=== PATIENT | male | born 1955 | race Caucasian/White ===

== ENCOUNTER 2019-05-26 | Emergency (ER) | payer BC ==
[2019-05-26] MEDS ORDERED: CYCLOBENZAPR5 MG PO (10:50)
[2019-05-26] MEDS ORDERED: VOLTAREN1%GEL TOP (10:50)
[2019-05-26] MEDS ORDERED: PROCARDIA XL30 MG PO (11:15)
[2019-05-26] MEDS ORDERED: CRESTOR5 MG PO (11:15)
[2019-05-26] MEDS ORDERED: JARDIANCE10 MG PO (11:16)
[2019-05-26] MEDS ORDERED: ACTOS30 MG PO (11:16)
[2019-05-26] MEDS ORDERED: ENALAPRIL5 MG PO (11:16)
[2019-05-26] MEDS ORDERED: TOUJEO MAX300 UNIT/M SC (11:18)
[2019-05-26] MEDS ORDERED: BYDUREON2 MG SC (11:19)
[2019-05-26] MEDS ORDERED: HUMALOG KW100 UNIT/M (11:20)
== END 2019-05-26 11:45 | disposition home or self-care (01) | DRG 556 ==
DX: M25.511 Pain in right shoulder (principal); E11.9 Type 2 diabetes mellitus without complications; I10 Essential (primary) hypertension

== ENCOUNTER 2023-05-10 02:20 | Emergency (ER) | payer MEDICARE ==
[~2023-05-10] VITALS: Ht 170.2 cm; Wt 104.0 kg
[2023-05-10] VITALS (17 sets, daily range): BP systolic 122–153; BP diastolic 56–75
[~2023-05-10 02:20] MED LIST: ACTOS30 MG PO; BYDUREON2 MG SC; CRESTOR5 MG PO; CYCLOBENZAPR5 MG PO; ENALAPRIL5 MG PO; HUMALOG KW100 UNIT/M; JARDIANCE10 MG PO; PROCARDIA XL30 MG PO; TOUJEO MAX300 UNIT/M SC; VOLTAREN1%GEL TOP
[2023-05-10] MEDS ORDERED: Pantoprazole Sodium 40 MG VIAL (Protonix) IV ONE (02:45)
[2023-05-10] MEDS ORDERED: MORPHINE SULFATE 4 MG/ML VIAL IV ONE (02:45)
[2023-05-10] MEDS ORDERED: SODIUM CHLORIDE 0.9% 1,000 ML IV ONE (02:45)
[2023-05-10] MEDS ORDERED: DICYCLOMINE HCL 20 MG/2 ML VIAL IM ONE (02:45)
[2023-05-10] MEDS ORDERED: ONDANSETRON HCl 4 MG/2 ML SDV IV ONE (02:45)
[2023-05-10 03:19] LABS: BASO% 0.7 % (0-3); EOS% 1.2 % (0-8); IMMATURE GRANULOCYTES 0.2 % (0.0-5.0); LYMPH% 17.1 % (15-41); MEAN CELL VOLUME 95.5 fL CALC (80.0-100.0); MEAN CORPUSCULAR HGB 31.3 pG CALC (26.0-32.0); MEAN CORPUSCULAR HGB CONC 32.7 g/dL CAL (32.0-36.0); MONO% 9.7 % (2-13); NEUT# 7.29 thou/uL (1.82-7.42); NEUT% 71.1 % (42-76); RED BLOOD COUNT 5.76 mill/uL (4.70-6.10); RED CELL DISTRI WIDTH 14.7 % (11.5-15.5)
[2023-05-10 03:46] LABS: ALBUMIN 4.9 g/dL (3.2-5.0); ALKALINE PHOSPHATASE 68 u/l (38-126); ANION GAP 17 (6-22 (CALC)); BILIRUBIN, TOTAL 0.5 mg/dL (0.2-1.3); BUN 25 mg/dL (8-23); BUN/CREATININE RATIO 25 (12-20 (CALC)); CARBON DIOXIDE 24 mmol/l (22-30); CHLORIDE 102 mmol/l (95-108); GFR FOR AFR.AMER. > 60 ML/MIN (>=60 (CALC)); GFR OTHER RACES > 60 ML/MIN (>=60 (CALC)); POTASSIUM 4.5 mmol/l (3.5-5.1); SGOT/AST 39 u/l (19-48); SODIUM 139 mmol/l (137-146); TOTAL PROTEIN 8.7 g/dL (6.3-8.2)
[2023-05-10] MEDS ORDERED: LACTATED RINGER'S 1,000 ML IV ONE (04:45)
[2023-05-10] MEDS ORDERED: HYDROmorphone HCL 2 MG/AMP IV ONE (05:10)
[2023-05-10] MEDS ORDERED: PROTONIX40 M2 PO (09:58)
== END 2023-05-10 10:23 | disposition home or self-care (01) ==
LOC: ED 02:20
PROVIDERS: Family Medicine
DX: K80.20 Calculus of gallbladder without cholecystitis without obstruction (principal); I10 Essential (primary) hypertension; E11.9 Type 2 diabetes mellitus without complications; Z79.4 Long term (current) use of insulin
CPT/HCPCS: S0164